=== PATIENT | male | born 1985 | race Caucasian/White ===

== ENCOUNTER 2021-07-02 10:50 | Emergency (ER) | payer OTHER ==
[2021-07-02 11:06] VITALS: BMI 26.2
[2021-07-02] MEDS ORDERED: ACETAMINOPHEN 500 MG TABLET (FP) PO ONE (11:24)
[2021-07-02] MEDS ORDERED: IBUPROFEN 400 MG TABLET (FP) PO ONE (11:27)
[2021-07-02] MEDS ORDERED: IBUPROFEN 600 MG TABLET (FP) PO ONE (11:33)
[2021-07-02] MEDS ORDERED: ACETAMINOPHEN 500 MG TABLET (FP) ONE (11:33)
[2021-07-02 13:19] VITALS: BP 150/105; PULSE 89; TEMP 100
== END 2021-07-02 13:21 | disposition home or self-care (01) ==
LOC: FER 10:50
DX: B34.9 Viral infection, unspecified (principal)
CPT/HCPCS: 87804; 93005; 99284-25; C9803; U0003; U0005

== ENCOUNTER 2022-10-04 21:59 | Emergency (ER) | payer OTHER ==
[2022-10-04 22:10] VITALS: BP 141/97; PULSE 95; RESP 18; TEMP 98.2; BMI 26.5
[2022-10-04] MEDS ORDERED: amLODIPine BESYLATE 10 MG TABLET (FP) PO ONE (22:30)
[2022-10-04] MEDS ORDERED: VALSARTAN 160 MG TABLET PO ONE (22:30)
[2022-10-04] MEDS ORDERED: HYDROCHLOROTHIAZIDE 12.5 MG CAPSULE (FP) PO STA (22:42)
[2022-10-05] MEDS ORDERED: HYDROCHLOROTHIAZIDE 12.5 MG CAPSULE (FP) PO SCH (10:00)
== END 2022-10-04 23:27 | disposition home or self-care (01) ==
LOC: FER 21:59
DX: R07.89 Other chest pain (principal)
CPT/HCPCS: 36415; 82550; 82553; 84484; 93005; 99284-25